=== PATIENT | female | born 1950 | race Caucasian/White ===

== ENCOUNTER 2020-02-19 11:29 | Emergency (ER) | payer MEDICARE, SELFPAY ==
[2020-02-19 11:36] VITALS: BP 175/80; PULSE 83; RESP 20; TEMP 36.5; O2SAT 99
--- NOTE | 2020-02-19 11:45 | ED.GENADULT ---
HPI - General Adult General Chief complaint: Unspecified Stated complaint: traveling/wants covid test Source: patient and RN notes reviewed Mode of arrival: ambulatory Limitations: no limitations History of Present Illness HPI narrative: The obese patient, a non-smoker/nondrinker, here presents for blood test. Patient states she is elderly with comorbidities [obesity, HLD, white coat HTN] and would like a COVID test especially as she is planning an upcoming trip to at risk family members. She is asymptomatic [no fever, cough, shortness of breath, loss of taste/smell, N/V/D/dehydration]. She has not been unable to get a hold of her doctor, and requests test Related Data Home Medications Medication Instructions Recorded Confirmed Unable to Obtain Home Medications 02/19/20 02/19/20 Allergies Allergy/AdvReac Type Severity Reaction Status Date / Time No Known Allergies Allergy Verified 02/19/20 11:53 Review of Systems Review of Systems: Narrative: General/Constitutional: No weight loss,fever Eyes: N0: Redness,discharge Ears/Nose/Throat: No: Epistaxis,ear discharge Respiratory: Denies: Hemoptysis Skin: No Lumps, eruption All Other Systems: Reviewed and Negative PMFSH Comments At time of signature, agree with nursing past medical, surgical, social and family history. There is no relevant family history pertinent to the presenting complaint The patient agrees, in light of health emergency- in my medical judgement, only a personal chat was preferable to fully undress & examine the patient exhibiting potential COVID symptoms, in order to limit risk of infection. Exam Narrative: Exam Narrative: General Appearance: Obese/well appearing, No distress , Conjunctiva clear Mouth/Neck: Normal appearing, Normal lips, Supple Respiratory: Airway patent, No respiratory distress Musculoskeletal: Full strength Skin: Warm, Dry Neurological: A&O x3, nl affect Course Course Emergency Course: The patient has been informed that they may have pre-hypertension or Hypertension based on a BP reading in the department. I recommend that the patient call the primary care provider listed on their discharge instructions or a physician of their choice this week to arrange follow up for further evaluation of possible pre-hypertension or Hypertension Vital Signs Vital signs: Vital Signs Temperature 97.7 F 02/19/20 11:36 Pulse Rate 83 02/19/20 11:36 Respiratory Rate 02/19/20 11:36 Blood Pressure 175/80 H 02/19/20 11:36 Pulse Oximetry 99 02/19/20 11:36 Temperature 97.7 F 02/19/20 11:36 Pulse Rate 83 02/19/20 11:36 Respiratory Rate 20 02/19/20 11:36 Blood Pressure 175/80 H 02/19/20 11:36 Pulse Oximetry 99 02/19/20 11:36 Medical Decision Making Vital Signs Vital Signs: Vital Signs Temperature 97.7 F 02/19/20 11:36 Pulse Rate 83 02/19/20 11:36 Respiratory Rate 20 02/19/20 11:36 Blood Pressure 175/80 H 02/19/20 11:36 Pulse Oximetry 99 02/19/20 11:36 Temperature 97.7 F 02/19/20 11:36 Pulse Rate 83 02/19/20 11:36 Respiratory Rate 02/19/20 11:36 Blood Pressure 175/80 H 02/19/20 11:36 Pulse Oximetry 99 02/19/20 11:36 Discharge Plan Discharge Clinical Impression: Visit for blood test, Elevated blood pressure reading in office with white coat syndrome, without diagnosis of hypertension Patient Disposition: Home, Self-Care Condition: Stable Prescriptions: No Action Unable to Obtain Home Medications RF: 0 Interventions: Discharge Disposition Last Done: 02/19/20 12:11 Follow-up/Referrals: Raman,Junior Oquendo MD [Primary Care Provider] - Discharge Date/Time: 02/19/20 12:11
== END 2020-02-19 12:11 | disposition home or self-care (01) ==
PROVIDERS: Emergency Provider Emergency Medicine; PCP Internal Medicine
DX: Z20.828 Contact with and (suspected) exposure to other viral communicable diseases (principal); R03.0 Elevated blood-pressure reading, without diagnosis of hypertension
CPT/HCPCS: 99211; G0463

== ENCOUNTER 2020-02-20 06:49 | Outpatient (NON) | payer MEDICARE, SELFPAY ==
[2020-02-20 23:30] LABS: SARS-CoV-2 RNA PCR Negative
== END 2020-02-20 06:50 ==
PROVIDERS: PCP Internal Medicine; Visit Provider Emergency Medicine
DX: E66.3 Overweight (principal); R03.0 Elevated blood-pressure reading, without diagnosis of hypertension; Z20.828 Contact with and (suspected) exposure to other viral communicable diseases
CPT/HCPCS: 87635; C9803; U0003

== ENCOUNTER 2025-03-18 23:53 | Emergency (ER) | payer MEDICARE, SELFPAY ==
--- OUTSIDE RECORDS SUMMARY | 2000-01-06 03:00 | XMS_ITS | Continuity of Care Document ---
Author Organization [facility] Address [address] [place] [address] [address] [place] [address] Phone Care Team Providers Care Usability Strategist Name Role Phone Deysi Almanzar Unavailable Unavailable Advance Directives Directive Yes / No Effective Date File Name No Information Encounters Encounter Description Practice Location Reason(s) For Visit Diagnoses Date Provider Providers Copied on Encounter [facility], [id number] [place] [address] [address], [place], [place], [id number], [place] tel:[phone] [facility] No Information Suleiman-[phone] Jenelle Jo. [address] , [address], [place], [address], [place]. tel:[phone] Family History Family Member Type Diagnosis Age At Onset No Information Payers Payer name Insurance type Covered democrat ID Authoriza tion(s) No Information Social History Type Description Quantity Date Captured Comments Sex Female Smoking Status No Information Chief Complaint And Reason For Visit No Information Reason For Referral Reason For Referral No Information History Of Present Illness Encounter Date Complaint History Of Prese nt Illness No Information Functional Status Date Functional Assessmen t No Information Instructions Date Instruction Additional Infor mation No Information Assessments Type Assessment Date No Information Patient Care Teams Name Effective Dates (start - stop) Status Members No Information
--- NOTE | ~2025-03-18 | CT_ITS ---
EXAM: CT brain wo con, CT cervical spine wo con - 03/19/2025 0:32 CDT HISTORY: 74 years old Female with fall, trauma COMPARISON: None available. PROCEDURE: CT of the head and cervical spine without contrast. Axial, sagittal and coronal reformatted planes were evaluated. Automatic exposure control was used for this study. FINDINGS: CT HEAD: BRAIN PARENCHYMA: No acute hemorrhage. No mass effect or herniation. Arroyo-white matter differentiation is maintained. Mild chronic volume loss. Scattered hypodensities in subcortical and periventricular white matter, likely representing chronic microvascular ischemic changes in this age group. Atherosc lerotic calcification of the intracranial vessels is noted. Empty sella with enlarged diaphragmatic sellae. VENTRICLES/ EXTRA-AXIAL SPACES: No hydrocephalus or extra-axial fluid collection. Subependymal nodules in the right lateral ventricle may represent subependymomas. EXTRACRANIAL STRUCTURES: No calvarial fracture. Mild soft tissue injury overlying the left forehead without subjacent fracture. Chronic maxillary, ethmoid and left frontal sinusitis. CT CERVICAL SPINE: No acute fracture or subluxation. Straightening of cervical lordosis, likely positional or may be related to muscle spasm. Multilevel degenerative changes of the cervical spine include varying degrees of disk space narrowing, endplate osteophytosis as well as facet and uncal arthropathy. Incomplete segmentation of C2 and C3. Moderate spinal canal stenosis at C3-4. Cervical lymphadenopathy. Prevertebral soft tissues are within normal limits. Right apical pleuroparenchymal scarring in the lungs. IMPRESSION: 1. No evidence for acute intracranial hemorrhage or calvarial fracture. 2. No evidence for cervical spine fracture or traumatic subluxation. 3. Multilevel degenerative changes of the cervical spine. 4. Mild soft tissue injury overlying the left forehead without subjacent fracture 5. Moderate spinal canal stenosis at C3-4. Cervical MRI is recommended for further evaluation. Reviewed, dictated and finalized at location N. IMPRESSION: 1. No evidence for acute intracranial hemorrhage or calvarial fracture. 2. No evidence for cervical spine fracture or traumatic subluxation. 3. Multilevel degenerative changes of the cervical spine. 4. Mild soft tissue injury overlying the left forehead without subjacent fract ure 5. Moderate spinal canal stenosis at C3-4. Cervical MRI is recommended for fur ther evaluation.
[2025-03-18 23:54] VITALS: BP 181/96; PULSE 95; RESP 18; TEMP 36.7; O2SAT 99
--- OUTSIDE RECORDS SUMMARY | 2025-03-18 23:56 | XMS_ITS | Clinical Summary ---
Author Organization [facility] Address [facility] [place] [address] Care Team Providers Care Master Merchandiser Name Role Phone Junior Camargo MD Primary Care Provider Surgical History Surgery Date Site/Laterality Comments BREAST SURGERY Breast Surgery Reduction Procedure - (Added by TW Conv) ARM INCISION Arm Incision - costmetic arm (excessive skin) (Added by TW Conv) BELT ABDOMINOPLASTY Abdominoplasty - (Added by TW Conv) STOMACH SURGERY Gastric Surgery - (Added by TW Conv) REDUCTION MAMMAPLASTY 07/15/2003 - 07/14/2004 Bilateral Family History Medical History Relation Name Comments Diabetes Mother Diabetes Mellit - (Added by TW Conv) Heart disease Mother Heart Disease - (Added by TW Conv) Hypertension Mother Hypertension - (Added by TW Conv) Liver cancer Other Liver Cancer - (Added by TW Conv) Breast cancer Neg Hx Ovarian cancer Neg Hx Pancreatic cancer Neg Hx Prostate cancer Neg Hx Relation Name Status Comments Mother Other Social History Tobacco Use Types Packs/Day Years Used Date Smoking Tobacco: Former Comments Unknown Sex and Gender Information Value Date Recorded Sex Assigned at Not on file 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 Gender Identity Not on file Sexual Orientation Not on file Obstetrics History Para Term AB IAB SAB Ectopic Multiple Livin g Live Births 4 2 2 Date Outcome GA Total Labor Labor/2nd/3rd Weight Sex Type Anes PTL Carolyn A1 A5 Name Clin Term Term Last Filed Vital Signs Vital Sign Reading Time Taken Comments Blood Pressure 145/81 05/10/2016 9:27 AM CDT Pulse - - Temperature - - Respiratory Rate - - Oxygen Saturation - - Inhaled Oxygen Concentration - - Weight 77.1 kg (170 lb) 11/27/2024 4:05 PM CDT Height 156.2 cm (5' 1.5) 11/27/2024 4:05 PM CDT Body Mass Index 31.61 11/27/2024 4:05 PM CDT Plan of Treatment Health Maintenance Due Date Last Done Comments Colon Cancer Screening-Colonoscopy 1950 Depression Screening 1950 Fall Risk Assessment 1950 Hepatitis C Screening 1950 Osteoporosis Screening-Bone Density Scan 1949 Hepatitis B Screening 1967 Zoster Vaccine (1 of 2) 1999 Well Visit 65+ 2014 Covid-19 Vaccine (4 - 2024-2 6 season) 2025 04/22/2021, 09/18/2020, 08/21/2020 Influenza Vaccine (#1) 2025 , 05/16/2018, 07/18/2017, Additional history exists DTaP/Tdap/Td Vaccine (2 - Td or Tdap) 07/10/2026 07/10/2016 Pneumococcal vaccine 65+ Completed 05/09/2020, 08/2017 Breast Cancer Screening-Mammogram Discontinued 11/27/2024, 09/04/2021, 06/21/2017, Additional history exists Procedures Procedure Name Priority Date/Time Associated Diagnosis Comments SCREENING MAMMOGRAM BILATERAL W NEWTON Schedule Routine, Read Routine (OP Routine) 11/27/2024 4:16 PM CDT Screening mammogram, encounter for from Last 3 Months or Most Recently Relevant to Health Maintenance Results * Screening Mammogram Bilateral W Newton (11/27/2024 4:16 PM CDT) Anatomical Region Laterality Modality Breast Bilateral Mammography Impressions 11/30/2024 9:39 AM CDT Bilateral No evidence of malignancy in either breast. OVERALL BI-RADS FINAL ASSESSMENT: 1 - Negative RECOMMENDATION: Recommend bilateral annual screening mammography. Narrative 11/30/2024 9:39 AM CDT EXAMINATION: Screening Mammogram Bilateral W Newton: 11/27/2024 COMPARISON: Relevant prior studies available at the time of interpretation were reviewed. TECHNIQUE: Mammography was performed with 2D and digital breast tomosynthesis (DBT) images. CAD was utilized. BREAST PARENCHYMAL COMPOSITION: The breasts are almost entirely fatty. FINDINGS: Bilateral There is no suspicious mass, calcification, or architectural distortion in either breast. us Self Screening Mammogram IMG MAMMO PROCEDURES Fi nal Result from Last 3 Months or Most Recently Relevant to Health Maintenance Insurance MEDICARE [facility] MEDICARE [facility] MEDICARE [employer]UE [employer] MEDICARE SUPPLEMENT Care Teams Master Merchandiser Relationship Specialty Start Date End Date Junior Camargo MD [facility] - General 06/21/17
--- NOTE | 2025-03-19 02:27 | ED.FALL ---
HPI - Fall General Chief Complaint: Fall Stated Complaint: tripped over shoes and hit head on the floor Time Seen by Provider: 03/19/25 01:53 History of Present Illness HPI Narrative: Patient is a 74-year-old female who presents emergency department this evening status post a ground level fall. Patient states that she will just flew in back home to [place] from a [place] this afternoon and had her seat case laying on the ground. She tripped over the handle of her suitcase and fell forward. Patient did hit her forehead on the ground. Did sustain a small hematoma to her mid forehead. Denies any loss of consciousness. Denies any blood thinner use. Patient states that she was ambulatory after the fall and was able to get up by herself. Currently denying any symptoms or concerns. Related Data Home Medications ?Medication ?Instructions ?Recorded ?Confirmed ?Last Taken ?Type Unable to Obtain Home Medications 02/19/20 02/19/20 Unknown History Allergies Allergy/AdvReac Type Severity Reaction Status Date / Time No Known Allergies Allergy Verified 02/19/20 11:53 Review of Systems Review of Systems: All systems are reviewed and are negative unless stated otherwise in the HPI. Exam Narrative: General: Alert, awake, afebrile, in no acute distress. HEENT: PERRL, no rhinorrhea, no post nasal drip, oropharynx clear, small hematoma to the middle of forehead. Neck: Trachea midline, no JVD, no lymphadenopathy. Cardiovascular: Regular rate and rhythm, no murmurs, rubs or gallops, no peripheral edema. Respiratory: Clear to auscultation bilaterally, no tachypnea, no wheezing, no rhonchi, no rubs, no respiratory distress. Abdomen: Soft, nontender, nondistended, no rebound, no guarding, no peritoneal signs. Musculoskeletal: No joint swelling or deformity, normal muscle tone. Skin: No rashes or petechia, no signs of infection. Psychiatric: Alert and oriented, normal behavior and judgment for situation. Neurological: Alert and oriented to person, place, and time. Follows all commands. No focal deficits, speech is clear and fluent. Course Vital Signs Vital signs: Vital Signs Temperature 98.1 F 03/18/25 23:54 Pulse Rate 95 03/18/25 23:54 Respiratory Rate 18 03/18/25 23:54 Blood Pressure 181/96 H 03/18/25 23:54 Pulse Oximetry 99 03/18/25 23:54 Oxygen Delivery Room Air 03/18/25 23:54 Temperature 98.1 F 03/18/25 23:54 Pulse Rate 95 03/18/25 23:54 Respiratory Rate 18 03/18/25 23:54 Blood Pressure 181/96 H 03/18/25 23:54 Pulse Oximetry 99 03/18/25 23:54 Oxygen Delivery Room Air 03/18/25 23:54 MDM - Fall MDM Narrative Medical decision making narrative: The patient was evaluated by myself in the emergency department. History is obtained from patient who is an independent historian and physical exam was performed. External medical records were reviewed at this time. Imaging studies obtained included CT brain and C-spine without IV contrast which was independently interpreted by me revealing no acute traumatic process, CT scans did incidentally comment on some ependymal nodules in the right 3rd ventricle and critical spinal stenosis at C3-C4. Patient was informed of these findings at bedside, states that she does not have any history of chronic headaches, neck pain or any chronic conditions, denies any numbness or tingling down her bilateral upper extremity. Did inform her that the radiologist is recommending an outpatient MRI for further evaluation and patient states that she will have this done through her primary care physician. Differential diagnosis considerations include intracranial hemorrhage, fractures. Comorbidities impacting this visit include none. I have evaluated and discussed social determinants of health with the patient that could potentially impact subsequent diagnosis and treatment plans. On repeat assessment of the patient, reevaluation revealed that the patient is doing well and is in no acute distress. Patient symptoms have improved since she arrived to our emergency department. Repeat vital signs were all reviewed and noted to be stable. Differential diagnosis and treatment plan were discussed with the patient at bedside. Patient agrees with discussion and after shared medical decision making agrees with discharge. All questions were answered to the patient's satisfaction. Patient will follow up with her PCP in 3-5 days. She was informed of the incidental findings on her CT head and neck recommending outpatient MRIs of the head and neck and patient is in agreement. Patient was provided with strict return precautions and instructed to return to the emergency department if any new or worsening symptoms develop. The patient was discharged in stable condition. Discharge Plan Discharge Clinical Impression: Head injury, Fall from ground level, Cervical spinal stenosis, Subependymoma of brain Patient Disposition: Home Condition: Improved Instructions: Antibiotic Form, Fall Prevention for Older Adults (ED), Head Injury (ED), Cervical Spinal Stenosis (ED) Additional Instructions: Please follow-up with your family doctor within the next 3-5 days. Return emergency department if any new or worsening symptoms develop. You CT head and neck did show some incidental findings and radiologist is recommending an MRI of the head and neck as an outpatient for further evaluation. Patient Language: Unknown Prescriptions: No Action Unable to Obtain Home Medications Follow-up/Referrals: Raman,Junior Oquendo MD [Primary Care Provider] - 3 Days Time of Disposition: 03:37
[2025-03-19 03:57] VITALS: BP 126/78; PULSE 76; RESP 18; TEMP 36.6; O2SAT 99
== END 2025-03-19 03:45 | disposition home or self-care (01) ==
PROVIDERS: Emergency Provider Emergency Medicine; PCP Internal Medicine
DX: S00.83XA Contusion of other part of head, initial encounter (principal); M48.02 Spinal stenosis, cervical region; D43.0 Neoplasm of uncertain behavior of brain, supratentorial; W18.09XA Striking against other object with subsequent fall, initial encounter
CPT/HCPCS: 70450; 72125; 99284